=== PATIENT | male | born 1965 | race Caucasian/White ===

== ENCOUNTER 2020-03-24 16:29 | Emergency (ER) | payer MEDICAID ==
[~2020-03-24] VITALS: Ht 175.3 cm; Wt 90.0 kg
[2020-03-24 18:05] LABS: CLARITY,URINE CLEAR (Clear); COLOR,URINE STRAW (Yellow); GLUCOSE, URINE NEGATIVE (Neg); KETONES,URINE NEGATIVE (Neg); LEUKOCYTE ESTERASE ,URINE NEGATIVE (Neg); NITRITES, URINE NEGATIVE (Neg); OCCULT BLOOD,URINE NEGATIVE (Neg); PROTEIN,URINE NEGATIVE (Neg); UROBILINOGEN,URINE 0.2 E.U/dL (0.2-1.0)
[2020-03-24 18:12] LABS: URINE AMPHETAMINE SCREEN NEGATIVE (Neg); URINE BARBITUATE SCREEN NEGATIVE (Neg); URINE BENZODIAZEPINES SCREEN POSITIVE (Neg); URINE CANNABINOID SCREEN POSITIVE (Neg); URINE COCAINE SCREEN NEGATIVE (Neg); URINE METHADONE SCREEN NEGATIVE (Neg); URINE OPIATE SCREEN NEGATIVE (Neg); URINE PHENCYCLIDINE SCREEN NEGATIVE (Neg)
[2020-03-24 18:30] LABS: UA COLLECTION TYPE VOIDED
[2020-03-24 18:40] LABS: BASOPHILS # (AUTO) 0.1 X10'3 (0-0.2); BASOPHILS % (AUTO) 1.1 % (0-1); EOSINOPHILS % (AUTO) 0.4 % (0-6); HEMATOCRIT 37.8 % (42.0-52.0); HEMOGLOBIN 12.5 g/dl (14.0-17.9); LYMPHOCYTES # (AUTO) 3.2 X10'3 (1.1-4.8); MEAN CORPUSCULAR HEMOGLOBIN 30.6 PG (27.0-31.0); MEAN CORPUSCULAR HGB CONC 33.1 g/dL (33.0-36.5); MEAN CORPUSCULAR VOLUME 92.6 FL (78-98); MEAN PLATELET VOLUME 7.7 FL (7.4-10.4); MONOCYTES # (AUTO) 0.5 X10'3 (0-0.9); MONOCYTES % (AUTO) 6.9 % (2-12); NEUTROPHILS # (AUTO) 3.8 X10'3 (1.8-7.7); NEUTROPHILS % (AUTO) 49.6 % (42-75); PLATELET COUNT 279 X10'3 (140-440); RED BLOOD COUNT 4.08 X10'6 (4.70-6.10); RED CELL DISTRIBUTION WIDTH 15.3 % (11.5-14.5); WHITE BLOOD COUNT 7.6 X10'3 (4.5-11.0)
[2020-03-24 18:51] LABS: ALANINE AMINOTRANSFERASE 43 U/L (12-78); ALBUMIN 2.7 G/DL (3.4-5.0); ALBUMIN/GLOBULIN RATIO 0.5 (1.1-1.5); ALKALINE PHOSPHATASE 119 IU/L (46-116); ANION GAP 13 (8-16); ASPARTATE AMINO TRANSFERASE 39 U/L (10-37); BILIRUBIN,TOTAL 0.2 MG/DL (0.1-1.0); BLOOD UREA NITROGEN 12 MG/DL (7-18); BUN/CREATININE RATIO 12.8 (5.4-32.0); CALCIUM 8.1 MG/DL (8.5-10.1); CHLORIDE 106 MMOL/L (99-107); CREATININE 0.94 MG/DL (0.60-1.10); GLUCOSE 96 MG/DL (70-104); POTASSIUM 3.1 MMOL/L (3.5-5.1); SODIUM 142 MMOL/L (135-145); TOTAL CARBON DIOXIDE 22.7 MMOL/L (24-32); TOTAL PROTEIN 8.4 G/DL (6.4-8.2); eGFR 83 ML/MIN
[2020-03-24 18:53] LABS: TROPONIN I < 0.04 NG/ML (0.0-0.05)
[2020-03-24] MEDS ORDERED: potassium Cl 20 mEq SR tablet PO ONE (20:00)
[2020-03-24 20:11] VITALS: BP 131/85
== END 2020-03-24 20:14 | disposition home or self-care (01) ==
LOC: ER 16:30
DX: F19.10 Other psychoactive substance abuse, uncomplicated (principal); F10.129 Alcohol abuse with intoxication, unspecified; F12.90 Cannabis use, unspecified, uncomplicated; Z72.89 Other problems related to lifestyle; Y90.0 Blood alcohol level of less than 20 mg/100 ml
CPT/HCPCS: 36415; 80053; 80305; 80320; 81003; 82140; 84484; 85025; 99283

== ENCOUNTER 2020-03-27 10:51 | Emergency (ER) | payer BC, MEDICAID ==
[~2020-03-27] VITALS: Ht 182.9 cm; Wt 88.6 kg
[2020-03-27 11:05] VITALS: BP 153/103
== END 2020-03-27 12:27 | disposition home or self-care (01) ==
LOC: ER 10:52
DX: S31.31XD Laceration without foreign body of scrotum and testes, subsequent encounter (principal); X58.XXXD Exposure to other specified factors, subsequent encounter; Z48.00 Encounter for change or removal of nonsurgical wound dressing
CPT/HCPCS: 99281

== ENCOUNTER 2020-04-25 11:24 | Emergency (ER) | payer MEDICAID ==
[~2020-04-25] VITALS: Ht 182.9 cm; Wt 86.4 kg
[~2020-04-25 11:24] MED LIST: ESCI20TA39 PO; FAMO20TA8 PO; HYDR-3686 PO; HYDROchlorothiazide tablet PO; IBUP-1984 PO; MULT-25 PO; NICO-631 TD; NYSPWD TP; PRAZ5CAP2 PO; TRAZ-251 PO; folic acid tablet PO
[2020-04-25 12:03] LABS: BASOPHILS # (AUTO) 0.1 X10'3 (0-0.2); BASOPHILS % (AUTO) 0.8 % (0-1); EOSINOPHILS % (AUTO) 0.5 % (0-6); HEMOGLOBIN 13.9 g/dl (14.0-17.9); LYMPHOCYTES # (AUTO) 2.5 X10'3 (1.1-4.8); MEAN CORPUSCULAR HEMOGLOBIN 30.7 PG (27.0-31.0); MEAN CORPUSCULAR VOLUME 92.9 FL (78-98); MEAN PLATELET VOLUME 7.8 FL (7.4-10.4); MONOCYTES # (AUTO) 0.5 X10'3 (0-0.9); NEUTROPHILS # (AUTO) 4.6 X10'3 (1.8-7.7); NEUTROPHILS % (AUTO) 59.7 % (42-75); PLATELET COUNT 226 X10'3 (140-440); RED BLOOD COUNT 4.52 X10'6 (4.70-6.10); WHITE BLOOD COUNT 7.8 X10'3 (4.5-11.0)
--- NOTE | 2020-04-25 12:11 | NUR ---
urine sent and labs drawn. Pt sitting at edge of bed. Awaiting [facility] PAVAN Rodriguez aware and will see pt when medically cleared.
[2020-04-25 12:18] LABS: ALANINE AMINOTRANSFERASE 58 U/L (12-78); ALBUMIN 3.5 G/DL (3.4-5.0); ALBUMIN/GLOBULIN RATIO 0.6 (1.1-1.5); ALKALINE PHOSPHATASE 103 IU/L (46-116); ANION GAP 9 (8-16); ASPARTATE AMINO TRANSFERASE 37 U/L (10-37); BILIRUBIN,TOTAL 0.2 MG/DL (0.1-1.0); BLOOD UREA NITROGEN 23 MG/DL (7-18); BUN/CREATININE RATIO 25.8 (5.4-32.0); CALCIUM 9.4 MG/DL (8.5-10.1); CHLORIDE 103 MMOL/L (99-107); CREATININE 0.89 MG/DL (0.60-1.10); ETHANOL 0.051 GM/DL (0.0-0.010); GLUCOSE 104 MG/DL (70-104); POTASSIUM 3.9 MMOL/L (3.5-5.1); SODIUM 140 MMOL/L (135-145); TOTAL CARBON DIOXIDE 28.3 MMOL/L (24-32); TOTAL PROTEIN 9.2 G/DL (6.4-8.2); eGFR 88 ML/MIN
[2020-04-25 12:25] LABS: CLARITY,URINE CLEAR (Clear); COLOR,URINE STRAW (Yellow); GLUCOSE, URINE NEGATIVE (Neg); KETONES,URINE NEGATIVE (Neg); LEUKOCYTE ESTERASE ,URINE NEGATIVE (Neg); NITRITES, URINE NEGATIVE (Neg); OCCULT BLOOD,URINE LARGE (Neg); PH,URINE 5.5 (4.8-8.0); PROTEIN,URINE NEGATIVE (Neg); UROBILINOGEN,URINE 0.2 E.U/dL (0.2-1.0)
[2020-04-25 12:26] LABS: UA COLLECTION TYPE CLN CATCH MIDSTREAM
[2020-04-25 12:46] LABS: URINE AMPHETAMINE SCREEN NEGATIVE (Neg); URINE BARBITUATE SCREEN NEGATIVE (Neg); URINE BENZODIAZEPINES SCREEN NEGATIVE (Neg); URINE CANNABINOID SCREEN POSITIVE (Neg); URINE COCAINE SCREEN NEGATIVE (Neg); URINE METHADONE SCREEN NEGATIVE (Neg); URINE OPIATE SCREEN NEGATIVE (Neg); URINE PHENCYCLIDINE SCREEN NEGATIVE (Neg)
[2020-04-25 12:48] LABS: RBC,URINE 0-2 /HPF (0-2)
[2020-04-25 12:51] LABS: BACTERIA,URINE NONE SEEN /HPF (Neg)
[2020-04-25 12:52] LABS: SQUAMOUS EPITHELIAL CELL,UR FEW /LPF (FEW)
[2020-04-25 12:55] LABS: WBC,URINE 0-4 /HPF (0-4)
--- NOTE | 2020-04-25 14:34 | NUR ---
FAXED PACKET [facility]
--- NOTE | 2020-04-25 15:56 | NUR ---
Patient ambulatory to BR, Steady gait. Patient requesting a snack. Patient is polite. Continue to monitor.
[2020-04-25] MEDS ORDERED: HYDR12.55 PO (17:00)
[2020-04-25] MEDS ORDERED: HYDR-3686 PO (17:00)
[2020-04-25] MEDS ORDERED: Folic Acid (17:00)
[2020-04-25] MEDS ORDERED: ESCI20TA39 PO (17:00)
[2020-04-25] MEDS ORDERED: FOLIC ACID 1 MG PO (17:00)
[2020-04-25] MEDS ORDERED: FAMO20TA8 PO (17:00)
[2020-04-25] MEDS ORDERED: TRAZ-256 PO (17:00)
[2020-04-25] MEDS ORDERED: IBUP-1984 PO (17:00)
[2020-04-25] MEDS ORDERED: PRAZ5CAP2 PO (17:00)
[2020-04-25] MEDS ORDERED: NICO-631 TD (17:00)
[2020-04-25] MEDS ORDERED: MULT-1085 PO (17:00)
[2020-04-25] MEDS ORDERED: ibuprofen tablet 400 MG TABLET PO PRN (17:50)
[2020-04-25] MEDS: hydrOXYzine 25 MG tablet PO PRN (17:58)
[2020-04-25] MEDS: ESCITALOPRAM OXALATE 5 MG TABLET PO SCH (18:24)
--- NOTE | 2020-04-25 18:33 | NUR ---
The patient has been resting on her bed. He has an intact dressing to his right lower leg. He stated he did not get his medications filled after discharge because "the pharmacy didn't have time because I had so many" He stated his mood was "pretty dark. I'm pretty susicidal. Anxious" The patient in no signs of distress at this time. He was made aware of plan of care.
[2020-04-25] MEDS: famotidine 20mg tablet PO SCH (20:38)
[2020-04-25] MEDS: traZODone 50mg tablet PO SCH (20:38)
--- NOTE | 2020-04-25 20:58 | NUR ---
The patient appears to be sleeping.
[2020-04-25] MEDS ORDERED: prazosin 5mg capsule PO SCH (21:00)
--- NOTE | 2020-04-25 22:19 | NUR ---
The patient appears to be sleeping
--- NOTE | 2020-04-25 23:17 | NUR ---
The patient appears to be sleeping
--- NOTE | 2020-04-26 02:55 | NUR ---
The patient has been up to use the bathroom once but on other checks he appears to be sleeping well.
--- NOTE | 2020-04-26 03:50 | NUR ---
The patient appears to be sleeping
[2020-04-26] MEDS: hydrOXYzine 25 MG tablet PO PRN ×2 (05:50→12:01)
--- NOTE | 2020-04-26 06:35 | NUR ---
Patient is anxious and just got his Atarax. Patient is pacing quietly in front of nurses station. Continue to monitor.
--- NOTE | 2020-04-26 07:50 | NUR ---
Patient eating breakfast. No distress observed. Continue to monitor.
[2020-04-26] MEDS ORDERED: HYDROchlorothiazide 12.5mg capsule PO SCH (08:00)
[2020-04-26] MEDS ORDERED: multivitamins, therapeutics tablet PO SCH (08:00)
[2020-04-26] MEDS ORDERED: nicotine 14mg patch - 24hr TD SCH (08:00)
[2020-04-26] MEDS ORDERED: folic acid 1mg tablet PO SCH (08:00)
[2020-04-26] MEDS: famotidine 20mg tablet PO SCH ×2 (08:17→20:40)
[2020-04-26] MEDS: ESCITALOPRAM OXALATE 5 MG TABLET PO SCH (08:18)
--- NOTE | 2020-04-26 09:03 | NUR ---
Patient laying in bed awake. No distress observed at this time. Continue to monitor.
--- NOTE | 2020-04-26 10:42 | NUR ---
Breaking Primary RN. Pt questioning when he will speak with a "doctor". It was explained to him that he was medically cleared and on a 72 hour hold. Pt asked when [facility] would be speaking with him, and it was then explained to him that they will re-evaluate him priro to releasing him. Pt then stated that he "need(s) to talk to someone", and states "my head space ain't right". Pt then goes on to say that he "need(s) to be placed in another facility".
--- NOTE | 2020-04-26 12:04 | NUR ---
Patient given Anxiety medication. Patient states this medication is not helping and wants something else. RN to ask Dr Chamberlain. Continue to monitor.
[2020-04-26] MEDS ORDERED: LORazepam 1 MG tablet PO ONE (13:30)
--- NOTE | 2020-04-26 14:19 | NUR ---
Patient given 1 mg Ativan PO and feeling a little better. Continue to monitor.
--- NOTE | 2020-04-26 16:10 | NUR ---
RN performed a Covid test due to [facility] office calling and requesting one for a possible admit. Continue to monitor.
[2020-04-26 18:08] VITALS: BP 144/98
--- NOTE | 2020-04-26 19:23 | NUR ---
PT REQUESTING AMBIEN TO HELP HIM SLEEP TONIGHT HE STATES THE TRAZODONE DOES NOT WORK FOR HIM ANYMORE. SPOKE WITH ESTEFANY BAUGH WHO ORDERED BENADRYL 50MG PO AT 1999 AMBIEN IS NOT GOOD CHOICE FOR THIS PT. PT OKAY WITH THIS CHANGE AND IS WILLING TO TRY BENADRYL. ORDER PLACED RECEIVED
[2020-04-26] MEDS ORDERED: diphenhydrAMINE 25mg capsule PO ONE (20:00)
--- NOTE | 2020-04-26 20:31 | NUR ---
[facility] to [facility] in [place]. states they will call when they find a electric mule driver to come picker/puller pt.
[2020-04-26] MEDS ORDERED: prazosin 1mg capsule PO SCH (20:48)
[2020-04-26] MEDS: traZODone 50mg tablet PO SCH (20:54)
== END 2020-04-26 21:38 ==
LOC: ER 11:25
DX: R45.851 Suicidal ideations (principal); Z20.822 Contact with and (suspected) exposure to COVID-19; F19.10 Other psychoactive substance abuse, uncomplicated; F32.9 Major depressive disorder, single episode, unspecified; F43.10 Post-traumatic stress disorder, unspecified; F17.200 Nicotine dependence, unspecified, uncomplicated; F12.90 Cannabis use, unspecified, uncomplicated; F15.90 Other stimulant use, unspecified, uncomplicated; F11.90 Opioid use, unspecified, uncomplicated; I10 Essential (primary) hypertension; Z72.89 Other problems related to lifestyle; Z59.0 Homelessness; Z96.643 Presence of artificial hip joint, bilateral; Z79.899 Other long term (current) drug therapy; Z76.5 Malingerer [conscious simulation]
CPT/HCPCS: 36415; 80053; 80305; 80320; 81001; 85025; 87635; 99285; C9803; Q0163; Q0177

== ENCOUNTER 2020-05-04 13:14 | Emergency (ER) | payer MEDICAID, MEDICARE ==
[~2020-05-04] VITALS: Ht 185.4 cm; Wt 225.0 kg
[~2020-05-04 13:14] MED LIST changes: +FOLIC ACID 1 MG PO; +HYDR12.55 PO; -HYDROchlorothiazide tablet PO; +MULT-1085 PO; -MULT-25 PO; -NYSPWD TP; -TRAZ-251 PO; +TRAZ-256 PO; -folic acid tablet PO
[2020-05-04 15:25] LABS: BASOPHILS # (AUTO) 0.1 X10'3 (0-0.2); EOSINOPHILS # (AUTO) 0.2 X10'3 (0-0.9); EOSINOPHILS % (AUTO) 3.3 % (0-6); HEMATOCRIT 35.7 % (42.0-52.0); HEMOGLOBIN 11.9 g/dl (14.0-17.9); LYMPHOCYTES # (AUTO) 2.1 X10'3 (1.1-4.8); LYMPHOCYTES % (AUTO) 32.5 % (21-51); MEAN CORPUSCULAR HEMOGLOBIN 30.6 PG (27.0-31.0); MEAN CORPUSCULAR HGB CONC 33.3 g/dL (33.0-36.5); MEAN CORPUSCULAR VOLUME 91.9 FL (78-98); MEAN PLATELET VOLUME 7.9 FL (7.4-10.4); MONOCYTES # (AUTO) 0.7 X10'3 (0-0.9); MONOCYTES % (AUTO) 10.9 % (2-12); NEUTROPHILS # (AUTO) 3.3 X10'3 (1.8-7.7); NEUTROPHILS % (AUTO) 52.3 % (42-75); PLATELET COUNT 184 X10'3 (140-440); RED BLOOD COUNT 3.89 X10'6 (4.70-6.10); RED CELL DISTRIBUTION WIDTH 16.3 % (11.5-14.5); WHITE BLOOD COUNT 6.3 X10'3 (4.5-11.0)
[2020-05-04 15:41] LABS: ALANINE AMINOTRANSFERASE 48 U/L (12-78); ALBUMIN 3.2 G/DL (3.4-5.0); ALBUMIN/GLOBULIN RATIO 0.7 (1.1-1.5); ALKALINE PHOSPHATASE 96 IU/L (46-116); ANION GAP 10 (8-16); ASPARTATE AMINO TRANSFERASE 34 U/L (10-37); BILIRUBIN,TOTAL 0.4 MG/DL (0.1-1.0); BLOOD UREA NITROGEN 21 MG/DL (7-18); BUN/CREATININE RATIO 21.4 (5.4-32.0); CALCIUM 9.3 MG/DL (8.5-10.1); CHLORIDE 102 MMOL/L (99-107); CREATININE 0.98 MG/DL (0.60-1.10); GLUCOSE 108 MG/DL (70-104); SODIUM 139 MMOL/L (135-145); TOTAL CARBON DIOXIDE 27.3 MMOL/L (24-32); TOTAL PROTEIN 7.9 G/DL (6.4-8.2); eGFR 79 ML/MIN
[2020-05-04 15:49] LABS: ACETAMINOPHEN < 2.0 UG/ML (10-30); ETHANOL < 0.010 GM/DL (0.0-0.010)
--- NOTE | 2020-05-04 17:49 | NUR ---
Pt brought over and placed into bed 24. Pt changed into green scrubs and belongings recorded and placed into a belongings bag.
[2020-05-04 18:25] LABS: CLARITY,URINE SLIGHTLY CLOUDY (Clear); COLOR,URINE STRAW (Yellow); GLUCOSE, URINE NEGATIVE (Neg); KETONES,URINE NEGATIVE (Neg); LEUKOCYTE ESTERASE ,URINE NEGATIVE (Neg); NITRITES, URINE NEGATIVE (Neg); OCCULT BLOOD,URINE MODERATE (Neg); PROTEIN,URINE NEGATIVE (Neg); UROBILINOGEN,URINE 0.2 E.U/dL (0.2-1.0)
[2020-05-04 18:31] LABS: URINE AMPHETAMINE SCREEN POSITIVE (Neg); URINE BARBITUATE SCREEN NEGATIVE (Neg); URINE BENZODIAZEPINES SCREEN NEGATIVE (Neg); URINE CANNABINOID SCREEN POSITIVE (Neg); URINE COCAINE SCREEN NEGATIVE (Neg); URINE METHADONE SCREEN NEGATIVE (Neg); URINE OPIATE SCREEN NEGATIVE (Neg); URINE PHENCYCLIDINE SCREEN NEGATIVE (Neg)
[2020-05-04 18:48] LABS: UA COLLECTION TYPE VOIDED
[2020-05-04 18:50] LABS: SQUAMOUS EPITHELIAL CELL,UR FEW /LPF (FEW); TRANSITIONAL EPI CELLS,URINE FEW /HPF
[2020-05-04 18:51] LABS: BACTERIA,URINE NONE SEEN /HPF (Neg); RBC,URINE 0-2 /HPF (0-2); WBC,URINE 0-4 /HPF (0-4)
--- NOTE | 2020-05-04 19:00 | NUR ---
One to one with the patient who presents as sightly confused and slurring his words. He admits to ETOH yesterday and methamphetamine recently. His drug screen was positive for amphetamines and THC. He reports that he is hearing voices telling him to harm himself. He was cooperative with unit routine and assessment. He was cooperative with giving a urine sample. He ate 100% of his dinner. He stated that he has been living at the [facility]. 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 The dressing he had on it he stated was changed 3 days ago and it had green purulent drainage. Dr. Chamberlain made aware of leg and did examine the leg and orders received.
[2020-05-04] MEDS ORDERED: bacitracin 15gm ointment TP ONE (19:40)
--- NOTE | 2020-05-04 19:57 | NUR ---
Packet sent to [facility]
--- NOTE | 2020-05-04 20:26 | NUR ---
The patient appears to be sleeping.
[2020-05-04] MEDS ORDERED: QUET400T PO ×2 (20:32→20:53)
[2020-05-04] MEDS ORDERED: TRAZ150T78 PO (20:53)
[2020-05-04] MEDS ORDERED: GABA800T PO (20:53)
[2020-05-04] MEDS ORDERED: mag hydrox/Alum hydrox/simeth 30ml oral suspension PO PRN (21:20)
[2020-05-04] MEDS ORDERED: QUET50TA22 PO (21:28)
[2020-05-04] MEDS ORDERED: QUETIAPINE FUMARATE 50 MG PO PRN (21:30)
--- NOTE | 2020-05-04 21:51 | NUR ---
The patient appears to be sleeping
[2020-05-04] MEDS: acetaminophen 325mg tablet PO PRN (23:24)
--- NOTE | 2020-05-05 00:08 | NUR ---
The patient was awake briefly and given tylenol for pain. He appears to be sleeping at this time.
--- NOTE | 2020-05-05 01:31 | NUR ---
The patient appears to be sleeping
--- NOTE | 2020-05-05 03:59 | NUR ---
The patient appears to be sleeping
--- NOTE | 2020-05-05 05:25 | NUR ---
The patient appears to be sleeping
[2020-05-05] MEDS: acetaminophen 325mg tablet PO PRN (05:51)
--- NOTE | 2020-05-05 06:50 | NUR ---
PT PROVIED EARPLUGS PER REQUEST. PT RESTING ON BACK WITH EYES CLOSED RR EQUAL AND UNLABORED
[2020-05-05] MEDS: ESCITALOPRAM OXALATE 5 MG TABLET PO SCH (07:54)
[2020-05-05] MEDS: quetiapine 100mg tablet PO SCH ×2 (07:55→20:13)
[2020-05-05] MEDS: gabapentin 400mg capsule PO SCH ×3 (07:55→20:13)
--- NOTE | 2020-05-05 08:06 | NUR ---
PT SITTING ON SIDE OF BED EATING BREAKFAST. AM MEDS GIVEN
--- NOTE | 2020-05-05 08:49 | NUR ---
PT RESTING WITH EYES CLOSED RR EQUAL AND UNLABORED
--- NOTE | 2020-05-05 10:34 | NUR ---
PT RESTING WITH EYES CLOSED RR EQUAL AND UNLABORED
--- NOTE | 2020-05-05 12:56 | NUR ---
PT RESTING WITH EYES CLOSED RR EQUAL AND UNLABORED
[2020-05-05] MEDS: QUEtiapine 25mg tablet PO PRN (14:16)
[2020-05-05] MEDS: sulfamethoxazole/trimethoprim DS (800/160mg) tablet PO SCH ×2 (14:17→20:12)
[2020-05-05] MEDS ORDERED: QUET400T12 PO (14:54)
--- NOTE | 2020-05-05 16:38 | NUR ---
CALL FROM [facility]. PT IS FROM [facility] AND THEY ARE LOOKING FOR PLACEMENT FOR PT.
--- NOTE | 2020-05-05 17:17 | NUR ---
LABS FAXED TO [facility] [phone]
--- NOTE | 2020-05-05 19:43 | NUR ---
pt is resting, no s/s of distress noted.
[2020-05-05] MEDS: traZODone 150mg tablet PO SCH (20:13)
[2020-05-05] MEDS: prazosin 5mg capsule PO SCH (20:19)
--- NOTE | 2020-05-05 21:03 | NUR ---
pt is sleeping, no s/s of distress noted.
[2020-05-06] MEDS ORDERED: acetaminophen 325mg tablet PO ONE (00:05)
[2020-05-06] MEDS: acetaminophen 325mg tablet PO PRN ×2 (00:07→09:09)
--- NOTE | 2020-05-06 00:10 | NUR ---
pt awoke to ask for tylenol for arm pain. pt give 650 mg tylenol and went back to bed.
--- NOTE | 2020-05-06 01:46 | NUR ---
pt continues to sleep, no s/s of distress noted.
[2020-05-06] MEDS: QUEtiapine 25mg tablet PO PRN ×3 (02:22→17:30)
--- NOTE | 2020-05-06 04:21 | NUR ---
pt continues to sleep, rr unlabored, no s/s of distress noted.
[2020-05-06] MEDS ORDERED: nicotine 21mg patch - 24 hr TD ONE (06:15)
--- NOTE | 2020-05-06 06:44 | NUR ---
Patient is lying supine in bed sleeping. Respirations are even and nonlabored.
[2020-05-06] MEDS: gabapentin 400mg capsule PO SCH ×3 (09:09→19:54)
[2020-05-06] MEDS: quetiapine 100mg tablet PO SCH ×2 (09:09→19:54)
[2020-05-06] MEDS: sulfamethoxazole/trimethoprim DS (800/160mg) tablet PO SCH ×2 (09:09→19:54)
[2020-05-06] MEDS: ESCITALOPRAM OXALATE 5 MG TABLET PO SCH (09:10)
--- NOTE | 2020-05-06 09:48 | NUR ---
Patient ate breakfast, then up to the restroom. Requesting a.m. meds for anxiety. Patient is now sleeping quietly. Patient reported that he just had too many stressors and was hopeless and suicidal. Patient is now sleeping.
--- NOTE | 2020-05-06 14:02 | NUR ---
Patient reported that he is feeling anxious, was medicated with Neurontin. Patient believed that his Seroquel was to be given q.i.d., instead it is ordered b.i.d. Patient just finished lunch and is sitting up at bedside.
--- NOTE | 2020-05-06 15:40 | NUR ---
Patient sleeping supine in bed. Respirations are even and nonlabored.
--- NOTE | 2020-05-06 18:30 | NUR ---
The patient is eating his dinner at the side of his bed
--- NOTE | 2020-05-06 19:18 | NUR ---
The patient is resting on his bed after eating 100% of his evening meal. He is stating that he is feeling as suicidal as when he was admitted. He stated that he believes [facility] is seeking placment for him. His affect is blunted. He stated that his energy level is low and that he is hearing voices telling him to kill himself.
[2020-05-06] MEDS: prazosin 5mg capsule PO SCH (19:54)
[2020-05-06] MEDS: lactobacillus rhamnosus 10,000 MMU CELLS/CAPSULE PO SCH (19:54)
[2020-05-06] MEDS: traZODone 150mg tablet PO SCH (19:55)
--- NOTE | 2020-05-06 20:17 | NUR ---
THe patient is up to use the bathroom. He is quiet, cooperative and in no apparent distress. He was given an HS snack
--- NOTE | 2020-05-06 21:54 | NUR ---
The patient appears to be sleeping.
--- NOTE | 2020-05-06 23:52 | NUR ---
The patient appears to be sleeping
--- NOTE | 2020-05-07 01:20 | NUR ---
The patient appears to be sleeping
--- NOTE | 2020-05-07 02:48 | NUR ---
The patient appears to be sleeping
--- NOTE | 2020-05-07 02:57 | NUR ---
Nurse to nurse with [facility] and spoke with Joan
--- NOTE | 2020-05-07 03:08 | NUR ---
Per [facility] patient has been accepted by Dr. Thompson , will call back with transpotion Info from [facility].
--- NOTE | 2020-05-07 04:01 | NUR ---
The patient appears to be sleeping
[2020-05-07] MEDS: QUEtiapine 25mg tablet PO PRN (05:06)
[2020-05-07 05:10] VITALS: BP 113/80
--- NOTE | 2020-05-07 05:10 | NUR ---
The patient awakened for vital signs and requested PRN med for anxiety and Seroquel given.
--- NOTE | 2020-05-07 06:41 | NUR ---
Received Pt in bed sleeping w/o distress at change of shift.
[2020-05-07] MEDS: lactobacillus rhamnosus 10,000 MMU CELLS/CAPSULE PO SCH (08:01)
[2020-05-07] MEDS: sulfamethoxazole/trimethoprim DS (800/160mg) tablet PO SCH (08:01)
[2020-05-07] MEDS: quetiapine 100mg tablet PO SCH (08:02)
[2020-05-07] MEDS: ESCITALOPRAM OXALATE 5 MG TABLET PO SCH (08:02)
[2020-05-07] MEDS: gabapentin 400mg capsule PO SCH (08:02)
--- NOTE | 2020-05-07 08:50 | NUR ---
[facility] DIRECTOR OF SOCIAL MEDIA MARKETING STYLIST APPRENTICE ETA [id number].
--- NOTE | 2020-05-07 09:47 | NUR ---
Pt woke and ate breakfast and was cooperative with taking AM meds. Pt calm and pleasant to talk with. He appears depressed with flat affect. Pt was picked up by [facility] courtesy driver and transfered to [facility]. [facility].
[2020-05-08] MEDS ORDERED: FOLI0.4T14 PO (13:18)
[2020-05-08] MEDS ORDERED: FOLI0.4T6 PO ×2 (13:18→13:34)
[2020-05-08] MEDS ORDERED: SULF1TAB45 PO (13:18)
[2020-05-08] MEDS ORDERED: HYDR12.55 PO (13:18)
== END 2020-05-07 09:52 ==
LOC: ER 13:14
DX: F79 Unspecified intellectual disabilities (principal); Z20.822 Contact with and (suspected) exposure to COVID-19; I10 Essential (primary) hypertension; F12.90 Cannabis use, unspecified, uncomplicated; F15.90 Other stimulant use, unspecified, uncomplicated; F11.90 Opioid use, unspecified, uncomplicated; Z98.890 Other specified postprocedural states; Z72.89 Other problems related to lifestyle; Z59.0 Homelessness; Z79.899 Other long term (current) drug therapy
CPT/HCPCS: 36415; 80053; 80305; 80320; 80329; 81001; 82140; 84443; 85025; 87426; 93005; 99285

== ENCOUNTER 2020-05-08 11:29 | Emergency (ER) | payer MEDICAID ==
[~2020-05-08] VITALS: Ht 182.9 cm; Wt 88.6 kg
[~2020-05-08 11:29] MED LIST changes: -FAMO20TA8 PO; -FOLIC ACID 1 MG PO; +GABA800T PO; -HYDR-3686 PO; -HYDR12.55 PO; -IBUP-1984 PO; -MULT-1085 PO; -NICO-631 TD; +QUET400T PO; +QUET400T12 PO; -TRAZ-256 PO; +TRAZ150T78 PO
[2020-05-08 12:02] LABS: BASOPHILS % (AUTO) 0.7 % (0-1); EOSINOPHILS % (AUTO) 0.2 % (0-6); HEMATOCRIT 41.1 % (42.0-52.0); HEMOGLOBIN 13.6 g/dl (14.0-17.9); LYMPHOCYTES # (AUTO) 1.2 X10'3 (1.1-4.8); LYMPHOCYTES % (AUTO) 19.8 % (21-51); MEAN CORPUSCULAR HEMOGLOBIN 30.8 PG (27.0-31.0); MEAN CORPUSCULAR HGB CONC 33.2 g/dL (33.0-36.5); MEAN CORPUSCULAR VOLUME 92.9 FL (78-98); MEAN PLATELET VOLUME 7.2 FL (7.4-10.4); MONOCYTES # (AUTO) 0.3 X10'3 (0-0.9); MONOCYTES % (AUTO) 5.1 % (2-12); NEUTROPHILS # (AUTO) 4.3 X10'3 (1.8-7.7); NEUTROPHILS % (AUTO) 74.2 % (42-75); PLATELET COUNT 212 X10'3 (140-440); RED BLOOD COUNT 4.42 X10'6 (4.70-6.10); RED CELL DISTRIBUTION WIDTH 15.9 % (11.5-14.5); WHITE BLOOD COUNT 5.8 X10'3 (4.5-11.0)
[2020-05-08 12:05] LABS: CLARITY,URINE CLEAR (Clear); COLOR,URINE STRAW (Yellow); GLUCOSE, URINE NEGATIVE (Neg); KETONES,URINE NEGATIVE (Neg); LEUKOCYTE ESTERASE ,URINE NEGATIVE (Neg); NITRITES, URINE NEGATIVE (Neg); OCCULT BLOOD,URINE MODERATE (Neg); PROTEIN,URINE NEGATIVE (Neg); UROBILINOGEN,URINE 0.2 E.U/dL (0.2-1.0)
[2020-05-08 12:07] LABS: UA COLLECTION TYPE CLN CATCH MIDSTREAM
[2020-05-08 12:11] LABS: BACTERIA,URINE FEW /HPF (Neg); SQUAMOUS EPITHELIAL CELL,UR FEW /LPF (FEW); WBC,URINE 0-4 /HPF (0-4)
[2020-05-08 12:25] LABS: ALANINE AMINOTRANSFERASE 54 U/L (12-78); ALBUMIN 3.6 G/DL (3.4-5.0); ALBUMIN/GLOBULIN RATIO 0.7 (1.1-1.5); ALKALINE PHOSPHATASE 100 IU/L (46-116); ANION GAP 9 (8-16); ASPARTATE AMINO TRANSFERASE 35 U/L (10-37); BILIRUBIN,TOTAL 0.1 MG/DL (0.1-1.0); BLOOD UREA NITROGEN 15 MG/DL (7-18); BUN/CREATININE RATIO 13.5 (5.4-32.0); CALCIUM 9.3 MG/DL (8.5-10.1); CHLORIDE 106 MMOL/L (99-107); CREATININE 1.11 MG/DL (0.60-1.10); ETHANOL 0.011 GM/DL (0.0-0.010); GLUCOSE 99 MG/DL (70-104); POTASSIUM 4.7 MMOL/L (3.5-5.1); SODIUM 140 MMOL/L (135-145); TOTAL CARBON DIOXIDE 25.3 MMOL/L (24-32); TOTAL PROTEIN 8.7 G/DL (6.4-8.2); eGFR 69 ML/MIN
[2020-05-08 12:42] LABS: URINE AMPHETAMINE SCREEN NEGATIVE (Neg); URINE BARBITUATE SCREEN NEGATIVE (Neg); URINE BENZODIAZEPINES SCREEN NEGATIVE (Neg); URINE CANNABINOID SCREEN POSITIVE (Neg); URINE COCAINE SCREEN NEGATIVE (Neg); URINE METHADONE SCREEN NEGATIVE (Neg); URINE OPIATE SCREEN NEGATIVE (Neg); URINE PHENCYCLIDINE SCREEN NEGATIVE (Neg)
[2020-05-08] MEDS ORDERED: HYDR12.55 PO (13:18)
[2020-05-08] MEDS ORDERED: FOLI0.4T14 PO (13:18)
[2020-05-08] MEDS ORDERED: SULF1TAB45 PO (13:18)
[2020-05-08] MEDS ORDERED: FOLI0.4T6 PO ×2 (13:18→13:34)
[2020-05-08] MEDS ORDERED: hydrOXYzine 25 MG tablet PO PRN (13:30)
[2020-05-08] MEDS: hydrOXYzine 25 MG tablet PO PRN ×2 (13:46→20:04)
--- NOTE | 2020-05-08 13:50 | NUR ---
Patient c/o anxiety. RN did Med Rec and did not see anything for anxiety. RN received verbal order for Hydroxyzine. RN gave patient med and patient states "This medication is not going to cut it." Patient states he takes Seroquel for anxiety. RN looked at external Med Rec and nothing is showing for Seroquel. RN called [facility] but they are not answering the phone at this moment. RN will continue to call to see if indeed Seroquel is being prescribed for anxiety. Patient was discharged yesterday from [facility]. Continue to monitor.
[2020-05-08] MEDS: gabapentin 400mg capsule PO SCH ×2 (14:12→20:04)
--- NOTE | 2020-05-08 14:20 | NUR ---
Patient resting. No distress observed. Continue to monitor
--- NOTE | 2020-05-08 14:25 | NUR ---
SENT PACKET TO [facility]
--- NOTE | 2020-05-08 14:35 | NUR ---
RN spoke with [facility], [facility] and patient has a RX for Seroquel which has not been picked up yet. Seroquel 400 mg twice a day scheduled. RN advised patient that Seroquel is scheduled for tonight at 1999. Patient verbalized understanding. Patient did receive Gabapentin 800 mg. No distress observed. Continue to monitor.
--- NOTE | 2020-05-08 16:20 | NUR ---
Patient resting in bed. No distress observed. Patient states he is still suicidal without a plan. Continue to monitor.
--- NOTE | 2020-05-08 19:02 | NUR ---
The patient is resting on his bed. He continues to report suicidal thoughts but then stated, "I don't know if I could go through with it" He denies hearing voices.
[2020-05-08] MEDS: prazosin 5mg capsule PO SCH (20:04)
[2020-05-08] MEDS: quetiapine 100mg tablet PO SCH (20:04)
[2020-05-08] MEDS: sulfamethoxazole/trimethoprim DS (800/160mg) tablet PO SCH (20:04)
[2020-05-08] MEDS: traZODone 150mg tablet PO SCH (20:04)
--- NOTE | 2020-05-08 20:31 | NUR ---
The patient is sitting on his bed and having a snack. He is polite.
--- NOTE | 2020-05-08 21:10 | NUR ---
The patient appears to be sleeping
--- NOTE | 2020-05-08 22:09 | NUR ---
The patient appears to be sleeping
--- NOTE | 2020-05-08 23:07 | NUR ---
The patient appears to be sleeping
--- NOTE | 2020-05-09 01:17 | NUR ---
The patient appears to be sleeping
--- NOTE | 2020-05-09 03:10 | NUR ---
The patient appears to be sleeping but was up once to use the restroom and to check the time.
--- NOTE | 2020-05-09 05:46 | NUR ---
The patient appears to be sleeping and has been sleeping well for most of the night
--- NOTE | 2020-05-09 07:09 | NUR ---
Pt. sleeping supine, no distress noted. Will continue to monitor.
[2020-05-09] MEDS: gabapentin 400mg capsule PO SCH ×3 (07:59→20:03)
[2020-05-09] MEDS: quetiapine 100mg tablet PO SCH ×2 (08:00→20:03)
[2020-05-09] MEDS ORDERED: folic acid 1mg tablet PO SCH (08:00)
[2020-05-09] MEDS ORDERED: ESCITALOPRAM OXALATE 5 MG TABLET PO SCH (08:00)
[2020-05-09] MEDS ORDERED: HYDROchlorothiazide 12.5mg capsule PO SCH (08:00)
[2020-05-09] MEDS: sulfamethoxazole/trimethoprim DS (800/160mg) tablet PO SCH ×2 (08:00→20:03)
--- NOTE | 2020-05-09 09:10 | NUR ---
Pt. ate breakfast and took 0800 scheduled medications. Pt resting now. No distress noted. Will continue to monitor.
--- NOTE | 2020-05-09 10:02 | NUR ---
Pt. resting supine in bed. No distress noted. Will continue to monitor.
--- NOTE | 2020-05-09 12:00 | NUR ---
Pt. resting supine in his bed, no distress noted. Will continue to monitor.
[2020-05-09] MEDS: hydrOXYzine 25 MG tablet PO PRN (12:57)
--- NOTE | 2020-05-09 13:57 | NUR ---
Lunch ate at bedside. 1300 medications administered with no issues. PRN atarax administered per pt. request for anxiety at 1300. Pt. awake resting in bed at this time. Will continue to monitor.
--- NOTE | 2020-05-09 16:00 | NUR ---
Pt. calm and cooperative, requesting snack, snack provided. No distress noted. Will continue to montior.
[2020-05-09 18:01] VITALS: BP 124/75
--- NOTE | 2020-05-09 18:30 | NUR ---
Received report on patient that is finishing his dinner meal. He denies any needs at this time. States that he is feeling anxious, but is willing to wait for HS Seroquel for his anxiety.
[2020-05-09] MEDS: prazosin 5mg capsule PO SCH (20:03)
[2020-05-09] MEDS: traZODone 150mg tablet PO SCH (20:03)
[2020-05-10] MEDS ORDERED: ACET-3067 PO (15:49)
[2020-05-10] MEDS ORDERED: DOXY100C43 PO (15:49)
== END 2020-05-09 21:00 ==
LOC: ER 11:30
DX: F32.9 Major depressive disorder, single episode, unspecified (principal); Z20.822 Contact with and (suspected) exposure to COVID-19; R45.851 Suicidal ideations; F10.129 Alcohol abuse with intoxication, unspecified; I10 Essential (primary) hypertension; F12.90 Cannabis use, unspecified, uncomplicated; F15.90 Other stimulant use, unspecified, uncomplicated; F11.90 Opioid use, unspecified, uncomplicated; Z76.5 Malingerer [conscious simulation]; Z98.890 Other specified postprocedural states; Z72.89 Other problems related to lifestyle; Z59.0 Homelessness; Z79.2 Long term (current) use of antibiotics; Z79.899 Other long term (current) drug therapy
CPT/HCPCS: 36415; 80053; 80305; 80320; 81001; 85025; 87635; 99285; C9803; Q0177

== ENCOUNTER 2020-05-10 15:06 | Emergency (ER) | payer MEDICAID ==
[~2020-05-10 15:06] MED LIST changes: +FOLI0.4T6 PO; +HYDR12.55 PO; -QUET400T PO; -QUET400T12 PO; +SULF1TAB45 PO
[2020-05-10] MEDS ORDERED: ACET-3067 PO (15:49)
[2020-05-10] MEDS ORDERED: DOXY100C43 PO (15:49)
[2020-05-10] MEDS ORDERED: mupirocin 2% ointment 22GM TP STA (15:53)
--- NOTE | 2020-05-10 16:15 | NUR ---
SPOKE TO [facility] AND THEY SAID DUE TO THE PATIENT'S STATUS A MEDICAL PATIENT WE CAN NOT HOLD HIM UNLESS THE DOCTOR WRITES A 1799. PT D/C'D TO [facility].
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
[2020-05-10 16:56] VITALS: BP 149/96
== END 2020-05-10 16:59 | disposition home or self-care (01) ==
LOC: ER 15:07
DX: L03.115 Cellulitis of right lower limb (principal); I10 Essential (primary) hypertension; F17.200 Nicotine dependence, unspecified, uncomplicated; F12.90 Cannabis use, unspecified, uncomplicated; F15.90 Other stimulant use, unspecified, uncomplicated; F11.90 Opioid use, unspecified, uncomplicated; Z98.890 Other specified postprocedural states; Z72.89 Other problems related to lifestyle; Z59.0 Homelessness; Z79.2 Long term (current) use of antibiotics; Z79.899 Other long term (current) drug therapy
CPT/HCPCS: 99283

== ENCOUNTER 2020-05-12 02:21 | Emergency (ER) | payer MEDICAID ==
[~2020-05-12] VITALS: Ht 185.4 cm; Wt 100.0 kg
[~2020-05-12 02:21] MED LIST changes: +ACET-3067 PO; +DOXY100C43 PO
--- NOTE | 2020-05-12 03:11 | NUR ---
increased to WILEY level II r/t 1131
--- NOTE | 2020-05-12 03:15 | NUR ---
ATTEMPTED TO ASSESS PT. PT FALLING ASLEEP AFTER SAYING 1-2 WORDS. PT ABLE TO STATE THAT HE DRANK ALCOHOL AND HE IS A "5150".
[2020-05-12 03:29] LABS: BASOPHILS # (AUTO) 0.1 X10'3 (0-0.2); BASOPHILS % (AUTO) 0.9 % (0-1); EOSINOPHILS # (AUTO) 0.1 X10'3 (0-0.9); EOSINOPHILS % (AUTO) 1.4 % (0-6); HEMATOCRIT 38.6 % (42.0-52.0); HEMOGLOBIN 12.7 g/dl (14.0-17.9); LYMPHOCYTES # (AUTO) 1.8 X10'3 (1.1-4.8); LYMPHOCYTES % (AUTO) 27.9 % (21-51); MEAN CORPUSCULAR HEMOGLOBIN 30.3 PG (27.0-31.0); MEAN CORPUSCULAR HGB CONC 32.9 g/dL (33.0-36.5); MEAN CORPUSCULAR VOLUME 92.2 FL (78-98); MEAN PLATELET VOLUME 7.6 FL (7.4-10.4); MONOCYTES # (AUTO) 0.6 X10'3 (0-0.9); MONOCYTES % (AUTO) 9.7 % (2-12); NEUTROPHILS # (AUTO) 3.8 X10'3 (1.8-7.7); NEUTROPHILS % (AUTO) 60.1 % (42-75); PLATELET COUNT 181 X10'3 (140-440); RED BLOOD COUNT 4.19 X10'6 (4.70-6.10); RED CELL DISTRIBUTION WIDTH 16.1 % (11.5-14.5); WHITE BLOOD COUNT 6.3 X10'3 (4.5-11.0)
[2020-05-12 03:30] LABS: URINE AMPHETAMINE SCREEN POSITIVE (Neg); URINE BARBITUATE SCREEN NEGATIVE (Neg); URINE BENZODIAZEPINES SCREEN NEGATIVE (Neg); URINE CANNABINOID SCREEN POSITIVE (Neg); URINE COCAINE SCREEN NEGATIVE (Neg); URINE METHADONE SCREEN NEGATIVE (Neg); URINE OPIATE SCREEN POSITIVE (Neg); URINE PHENCYCLIDINE SCREEN NEGATIVE (Neg)
[2020-05-12 03:31] LABS: ALANINE AMINOTRANSFERASE 47 U/L (12-78); ALBUMIN 3.7 G/DL (3.4-5.0); ALBUMIN/GLOBULIN RATIO 0.8 (1.1-1.5); ALKALINE PHOSPHATASE 98 IU/L (46-116); ANION GAP 12 (8-16); ASPARTATE AMINO TRANSFERASE 27 U/L (10-37); BILIRUBIN,TOTAL 0.5 MG/DL (0.1-1.0); BLOOD UREA NITROGEN 31 MG/DL (7-18); BUN/CREATININE RATIO 27.9 (5.4-32.0); CALCIUM 9.5 MG/DL (8.5-10.1); CHLORIDE 103 MMOL/L (99-107); CREATININE 1.11 MG/DL (0.60-1.10); GLUCOSE 136 MG/DL (70-104); POTASSIUM 3.6 MMOL/L (3.5-5.1); SODIUM 142 MMOL/L (135-145); TOTAL CARBON DIOXIDE 27.5 MMOL/L (24-32); TOTAL PROTEIN 8.5 G/DL (6.4-8.2); eGFR 69 ML/MIN
[2020-05-12 03:39] LABS: ETHANOL < 0.010 GM/DL (0.0-0.010)
--- NOTE | 2020-05-12 04:04 | NUR ---
PT PACKET FAXED TO [facility]
--- NOTE | 2020-05-12 04:05 | NUR ---
The patient is well known to [facility] and has been frequenting the local ERs. He was nonverbal initially in the ER but when the MD stated that he would be discharged then all of a sudden he spoke and stated he was suicidal. He as just discharged from [facility] two days ago and he has not been taking his psychiatriac medications after discharge but has been abusing substances. Utox was positive for opiates, amphetamines, and THC.
--- NOTE | 2020-05-12 04:20 | NUR ---
Call to [facility] who report that they made no medication changes at their facility.
--- NOTE | 2020-05-12 04:47 | NUR ---
Contacted [facility] and spoke with the charge accounts audit clerk and requested and medication consult.
--- NOTE | 2020-05-12 04:49 | NUR ---
The patient appears to be sleeping at this time.
--- NOTE | 2020-05-12 06:40 | NUR ---
pt is sleeping, no s/s of distress noted.
[2020-05-12] MEDS: ESCITALOPRAM OXALATE 5 MG TABLET PO SCH (07:26)
[2020-05-12] MEDS: gabapentin 400mg capsule PO SCH ×3 (07:27→20:07)
[2020-05-12] MEDS: HYDROchlorothiazide 12.5mg capsule PO SCH (07:27)
[2020-05-12] MEDS: DOXYCYCLINE 100MG CAPSULE PO SCH ×2 (07:27→20:07)
[2020-05-12] MEDS: folic acid 1mg tablet PO SCH (07:27)
[2020-05-12] MEDS ORDERED: acetaminophen w/codeine (60MG) #4 tablet PO PRN (08:00)
--- NOTE | 2020-05-12 08:23 | NUR ---
pt moved to bed 20, pt next to him was being disruptive.
--- NOTE | 2020-05-12 10:04 | NUR ---
pt continues to sleep, no s/s of distress noted.
--- NOTE | 2020-05-12 12:31 | NUR ---
BRISSA FROM [facility] SPEAKING WITH
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
[2020-05-12] MEDS: LORazepam 1 MG tablet PO PRN (13:03)
--- NOTE | 2020-05-12 13:54 | NUR ---
pt is now sleeping, no s/s of distress noted. r/r unlabored.
--- NOTE | 2020-05-12 18:19 | NUR ---
Staff escorted pt to ER overflow. Pt is up at bedside eating his dinner
[2020-05-12] MEDS: prazosin 5mg capsule PO SCH (20:07)
[2020-05-12] MEDS: traZODone 150mg tablet PO SCH (20:09)
--- NOTE | 2020-05-12 20:16 | NUR ---
PT IS MAD BECAUSE HE IS NOT GETTING 400MG OF SEROQUEL AT NIGHT, HE TAKES THE REST OF HIS HS MEDICATIONS WITHOUT ISSUE.
--- NOTE | 2020-05-12 21:00 | NUR ---
Pt requests a snack, milk and sandwhich given
--- NOTE | 2020-05-13 00:54 | NUR ---
Pt sleping soundly, snoring at times
--- NOTE | 2020-05-13 02:08 | NUR ---
Pt up to use the restroom, returns back to bed
--- NOTE | 2020-05-13 05:33 | NUR ---
PT sleeping soundly, RR 16
[2020-05-13] MEDS: LORazepam 1 MG tablet PO PRN ×3 (05:39→19:02)
--- NOTE | 2020-05-13 07:00 | NUR ---
Pt up and asking for "grievance form" at 0645 because they have not ordered the seroquel he wants. Pt states he hasn't slept, but noc nurse was clear that he was sleeping most of the night.
[2020-05-13] MEDS: gabapentin 400mg capsule PO SCH ×3 (07:35→20:47)
[2020-05-13] MEDS: HYDROchlorothiazide 12.5mg capsule PO SCH (07:35)
[2020-05-13] MEDS: ESCITALOPRAM OXALATE 5 MG TABLET PO SCH (07:35)
[2020-05-13] MEDS: DOXYCYCLINE 100MG CAPSULE PO SCH ×2 (07:36→21:03)
[2020-05-13] MEDS: folic acid 1mg tablet PO SCH (07:36)
--- NOTE | 2020-05-13 09:00 | NUR ---
Pt was up for breakfast and since has been able to fall asleep and currently is resting peacefully without distress.
--- NOTE | 2020-05-13 10:55 | NUR ---
[facility] called and they have the pt's packet sent to [facility] who are looking at it. [facility] is not able to take the patient because of the open wound on his right lower leg.
--- NOTE | 2020-05-13 11:00 | NUR ---
DRSG change complete. No s/s of infection. Pt tolerated well.
--- NOTE | 2020-05-13 13:00 | NUR ---
Pt sitting up in bed eating lunch. Pt had c/o anxiety and received ativan with good results - decrease in anxiety.
--- NOTE | 2020-05-13 15:00 | NUR ---
Pt lying in bed, quietly without complaints.
--- NOTE | 2020-05-13 17:00 | NUR ---
Pt up x 1 to the bathroom. Pt resting quietly in the bed without complaints.
--- NOTE | 2020-05-13 19:03 | NUR ---
Patient comes to nurses station. He politely requests his PRN Ativan for anxiety. This was administered.
[2020-05-13] MEDS: lactobacillus rhamnosus 10,000 MMU CELLS/CAPSULE PO SCH (20:46)
[2020-05-13] MEDS: traZODone 150mg tablet PO SCH (20:47)
[2020-05-13] MEDS: prazosin 5mg capsule PO SCH (21:03)
--- NOTE | 2020-05-14 00:03 | NUR ---
Patient sleeping quietly, low fowlers position.
--- NOTE | 2020-05-14 01:54 | NUR ---
Patient sleeps quietly in a low fowlers pos. No s/s of any distress. Close observation for patient and staff safety.
--- NOTE | 2020-05-14 04:10 | NUR ---
Patient is sleeping quietly in a supine position. No distress.
[2020-05-14] MEDS: LORazepam 1 MG tablet PO PRN ×3 (06:15→18:49)
--- NOTE | 2020-05-14 07:00 | NUR ---
Pt awake and c/o anxiety. Pt given ativan with good results. Pt offered no other complaints.
[2020-05-14] MEDS: folic acid 1mg tablet PO SCH (07:45)
[2020-05-14] MEDS: DOXYCYCLINE 100MG CAPSULE PO SCH ×2 (07:45→20:00)
[2020-05-14] MEDS: lactobacillus rhamnosus 10,000 MMU CELLS/CAPSULE PO SCH ×2 (07:45→20:00)
[2020-05-14] MEDS: ESCITALOPRAM OXALATE 5 MG TABLET PO SCH (07:45)
[2020-05-14] MEDS: gabapentin 400mg capsule PO SCH ×3 (07:45→21:00)
[2020-05-14] MEDS: HYDROchlorothiazide 12.5mg capsule PO SCH (07:45)
--- NOTE | 2020-05-14 09:01 | NUR ---
Pt ate breakfast and now has fallen back to sleep without signs of distress.
--- NOTE | 2020-05-14 11:00 | NUR ---
Pt currently sleeping in bed without complaints or signs of distress.
--- NOTE | 2020-05-14 13:00 | NUR ---
Pt awake eating lunch currently. Pt had c/o anxiety and was given ativan with good effect.
--- NOTE | 2020-05-14 14:45 | NUR ---
Patient sleeping supine. No distress observed. Continue to monitor.
--- NOTE | 2020-05-14 16:24 | NUR ---
Patient got up and walked to the bathroom earier. Now patient sleeping on left side. No distress observed. Continue to monitor.
[2020-05-14] MEDS ORDERED: OLANZapine 5mg rapidly disint. tablet PO ONE (17:05)
--- NOTE | 2020-05-14 17:15 | NUR ---
Patient wanted something for "hearing voices". RN spoke to Dr Weeks and gave patient Zyprexa 10 mg zydius. Continue to monitor.
--- NOTE | 2020-05-14 17:58 | NUR ---
Patient ate 100% of his dinner. No distress observed. Continue to monitor.
--- NOTE | 2020-05-14 18:56 | NUR ---
Patient is sitting at bedside, complaining of anxiety. PO Ativan given. Patient is cooperative.
[2020-05-14] MEDS: prazosin 5mg capsule PO SCH (21:00)
[2020-05-14] MEDS: traZODone 150mg tablet PO SCH (21:00)
[2020-05-14] MEDS: acetaminophen w/codeine (30MG) #3 tablet PO PRN (23:00)
--- NOTE | 2020-05-14 23:06 | NUR ---
Snack of khris crackers and juice provided per patient request.
[2020-05-14] MEDS ORDERED: haloperidol lactate 5mg/ml inj IM ONE (23:45)
--- NOTE | 2020-05-14 23:46 | NUR ---
Patient was moved to main ER secondary to staffing. Patient is more agitated in this noiser enviornment. Patient becomes more labile. Per ER MD ok to give Trazidone 150 mg (a repeat dose,) and Haldol 5mg PO. A 12 lead will also be done as a routine precusor to psych med adm, per req of ER MD. Patient states he will comply with medications.
[2020-05-15] MEDS: traZODone 150mg tablet PO SCH ×3 (00:03→23:57)
--- NOTE | 2020-05-15 03:06 | NUR ---
Patient sleeping quietly, no distress noted.
--- NOTE | 2020-05-15 04:18 | NUR ---
Patient sleeps quietly, no distress.
--- NOTE | 2020-05-15 06:26 | NUR ---
Assumed care of patient
--- NOTE | 2020-05-15 07:16 | NUR ---
Moved patient to ER Overflow area
[2020-05-15] MEDS: LORazepam 1 MG tablet PO PRN (07:21)
[2020-05-15] MEDS: lactobacillus rhamnosus 10,000 MMU CELLS/CAPSULE PO SCH ×2 (07:22→21:16)
[2020-05-15] MEDS: folic acid 1mg tablet PO SCH (07:22)
[2020-05-15] MEDS: gabapentin 400mg capsule PO SCH ×3 (07:22→21:16)
[2020-05-15] MEDS: HYDROchlorothiazide 12.5mg capsule PO SCH (07:42)
[2020-05-15] MEDS: DOXYCYCLINE 100MG CAPSULE PO SCH ×2 (07:42→21:16)
[2020-05-15] MEDS: ESCITALOPRAM OXALATE 5 MG TABLET PO SCH (07:43)
--- NOTE | 2020-05-15 08:30 | NUR ---
Patient took all medications as presribed and ate all of his breakfast
--- NOTE | 2020-05-15 10:17 | NUR ---
Patient is asleep on his back in no apparent distress. Respirations are even and unlabored.
--- NOTE | 2020-05-15 12:06 | NUR ---
Patient asks for a snack and is provided with crackers.
--- NOTE | 2020-05-15 13:00 | NUR ---
Shanel ate all of his lunch and takes his neurontin
--- NOTE | 2020-05-15 14:00 | NUR ---
[facility] is currently working on safety planning client into a drug rehab facility. They are exploring having client admitted to [facility].
--- NOTE | 2020-05-15 16:05 | NUR ---
Patient continues to rest on his back in no apparent distress. Respirations are even and unlabored.
[2020-05-15] MEDS: acetaminophen w/codeine (30MG) #3 tablet PO PRN (17:22)
--- NOTE | 2020-05-15 18:06 | NUR ---
Transferred care to [facility]
--- NOTE | 2020-05-15 18:41 | NUR ---
Urine collected from patient and sent for UA.
[2020-05-15] MEDS: prazosin 5mg capsule PO SCH (21:16)
--- NOTE | 2020-05-15 21:19 | NUR ---
Pt given NOC brianne meds and a sandwich and yogurt. Pt currently sitting at edge of bed.
--- NOTE | 2020-05-16 02:30 | NUR ---
Patient care assumed. Patient is brought back from the main ER. He is sleeping quietly. Close observation provided for patient safety.
--- NOTE | 2020-05-16 04:05 | NUR ---
Patient is up to void and then back to bed. No distress.
--- NOTE | 2020-05-16 05:15 | NUR ---
Patient sleeps quietly on his right side. No distress.
[2020-05-16] MEDS: acetaminophen w/codeine (30MG) #3 tablet PO PRN ×3 (06:44→20:35)
--- NOTE | 2020-05-16 07:00 | NUR ---
Pt received asleep, but awoke c/o not sleeping and right leg pain. Tyl. #3 given per order for pain. Pt polite and cooperative.
[2020-05-16] MEDS: folic acid 1mg tablet PO SCH (08:00)
[2020-05-16] MEDS: lactobacillus rhamnosus 10,000 MMU CELLS/CAPSULE PO SCH ×2 (08:00→20:27)
[2020-05-16] MEDS: DOXYCYCLINE 100MG CAPSULE PO SCH ×2 (08:00→20:27)
[2020-05-16] MEDS: HYDROchlorothiazide 12.5mg capsule PO SCH (08:01)
[2020-05-16] MEDS: gabapentin 400mg capsule PO SCH ×3 (08:01→20:27)
[2020-05-16] MEDS: ESCITALOPRAM OXALATE 5 MG TABLET PO SCH (08:03)
--- NOTE | 2020-05-16 09:00 | NUR ---
Pt awoke for breakfast and took medications. Pt cooperative. And now has fallen back to sleep.
--- NOTE | 2020-05-16 09:22 | NUR ---
[place]: Pt given phone number to [place] to authorize Substance abuse treatment.
--- NOTE | 2020-05-16 11:00 | NUR ---
Pt at bedside being evaluated by [facility] psychologist. Pt cooperative.
--- NOTE | 2020-05-16 13:00 | NUR ---
Pt sitting up in bed, eating lunch without complaints.
--- NOTE | 2020-05-16 15:00 | NUR ---
Pt resting calmly in bed without complaints.
[2020-05-16] MEDS: hydrOXYzine 25 MG tablet PO PRN (17:18)
--- NOTE | 2020-05-16 17:19 | NUR ---
Pt resting quietly in bed, then at 1715 c/o hearing voices and anxiety. Pt given atarax for anxiety.
--- NOTE | 2020-05-16 19:29 | NUR ---
Assumed care at 1830. Patient inquires about upcoming medications, ambulates to bathroom to void, his affect is flat. Patient ate his dinner, he has been medication compliant.
[2020-05-16] MEDS: prazosin 5mg capsule PO SCH (20:27)
[2020-05-16] MEDS: traZODone 150mg tablet PO SCH (20:27)
--- NOTE | 2020-05-16 20:30 | NUR ---
Patilent up to the bathroom and then back to bed. No distress noted.
--- NOTE | 2020-05-16 21:40 | NUR ---
Patient is awake, resting quietly, in view from nurses station.
[2020-05-17] MEDS: hydrOXYzine 25 MG tablet PO PRN ×2 (01:32→12:31)
[2020-05-17] MEDS: traZODone 150mg tablet PO SCH ×3 (01:32→23:45)
--- NOTE | 2020-05-17 01:46 | NUR ---
Patient had awoken complaining of anxiety and inability to sleep. Trazadone 50 mg given PO along with Atarax PO. The patient is medication compliant tonight.
[2020-05-17] MEDS ORDERED: diphenhydrAMINE 25mg capsule PO ONE (03:45)
--- NOTE | 2020-05-17 03:45 | NUR ---
Patient is awake, states he still can't sleep will. Per ER MD, ok to give Benadryl 50 mg PO.
--- NOTE | 2020-05-17 04:26 | NUR ---
Patient sleeping now on his left side. In view from nursing station.
[2020-05-17] MEDS: acetaminophen w/codeine (30MG) #3 tablet PO PRN ×3 (06:41→21:02)
--- NOTE | 2020-05-17 06:46 | NUR ---
0600 At change of shift patient reclining in bed awake, no distress observed. Patient just recieved Tylenol #3 for his 7/10 leg pain. Patient is on right side attempting to sleep. Continue to monitor.
[2020-05-17] MEDS: folic acid 1mg tablet PO SCH (08:13)
[2020-05-17] MEDS: gabapentin 400mg capsule PO SCH ×3 (08:13→21:27)
[2020-05-17] MEDS: HYDROchlorothiazide 12.5mg capsule PO SCH (08:14)
[2020-05-17] MEDS: lactobacillus rhamnosus 10,000 MMU CELLS/CAPSULE PO SCH ×2 (08:15→21:02)
[2020-05-17] MEDS: ESCITALOPRAM OXALATE 5 MG TABLET PO SCH (08:15)
--- NOTE | 2020-05-17 08:21 | NUR ---
Patient is sitting up and eating. No distress observed. Continue to monitor.
[2020-05-17] MEDS ORDERED: OLANZapine 5mg rapidly disint. tablet PO ONE (09:45)
--- NOTE | 2020-05-17 09:48 | NUR ---
Patient is having his blood drawn and urinalysis redone. [facility] calling on patient and needs new labs. No distress observed. Continue to monitor.
[2020-05-17 10:06] LABS: BASOPHILS # (AUTO) 0.1 X10'3 (0-0.2); BASOPHILS % (AUTO) 1.4 % (0-1); EOSINOPHILS # (AUTO) 0.2 X10'3 (0-0.9); EOSINOPHILS % (AUTO) 3.7 % (0-6); HEMOGLOBIN 14.7 g/dl (14.0-17.9); LYMPHOCYTES % (AUTO) 41.4 % (21-51); MEAN CORPUSCULAR HEMOGLOBIN 30.6 PG (27.0-31.0); MEAN CORPUSCULAR HGB CONC 33.5 g/dL (33.0-36.5); MEAN CORPUSCULAR VOLUME 91.5 FL (78-98); MEAN PLATELET VOLUME 7.7 FL (7.4-10.4); MONOCYTES # (AUTO) 0.4 X10'3 (0-0.9); MONOCYTES % (AUTO) 7.5 % (2-12); NEUTROPHILS # (AUTO) 2.2 X10'3 (1.8-7.7); PLATELET COUNT 193 X10'3 (140-440); RED BLOOD COUNT 4.81 X10'6 (4.70-6.10); RED CELL DISTRIBUTION WIDTH 15.4 % (11.5-14.5); WHITE BLOOD COUNT 4.7 X10'3 (4.5-11.0)
[2020-05-17 10:20] LABS: ALANINE AMINOTRANSFERASE 74 U/L (12-78); ALBUMIN 3.6 G/DL (3.4-5.0); ALBUMIN/GLOBULIN RATIO 0.8 (1.1-1.5); ALKALINE PHOSPHATASE 91 IU/L (46-116); ANION GAP 9 (8-16); ASPARTATE AMINO TRANSFERASE 51 U/L (10-37); BILIRUBIN,TOTAL 0.3 MG/DL (0.1-1.0); BLOOD UREA NITROGEN 22 MG/DL (7-18); BUN/CREATININE RATIO 20.8 (5.4-32.0); CALCIUM 9.5 MG/DL (8.5-10.1); CHLORIDE 102 MMOL/L (99-107); CREATININE 1.06 MG/DL (0.60-1.10); GLUCOSE 68 MG/DL (70-104); POTASSIUM 4.2 MMOL/L (3.5-5.1); SODIUM 140 MMOL/L (135-145); TOTAL CARBON DIOXIDE 29.1 MMOL/L (24-32); TOTAL PROTEIN 8.4 G/DL (6.4-8.2); eGFR 72 ML/MIN
[2020-05-17 10:37] LABS: CLARITY,URINE CLEAR (Clear); COLOR,URINE YELLOW (Yellow); GLUCOSE, URINE NEGATIVE (Neg); KETONES,URINE NEGATIVE (Neg); LEUKOCYTE ESTERASE ,URINE NEGATIVE (Neg); NITRITES, URINE NEGATIVE (Neg); OCCULT BLOOD,URINE TRACE-INTACT (Neg); PROTEIN,URINE NEGATIVE (Neg); UROBILINOGEN,URINE 0.2 E.U/dL (0.2-1.0)
[2020-05-17 10:39] LABS: UA COLLECTION TYPE NON-SPECIFIED
[2020-05-17 11:08] LABS: BACTERIA,URINE FEW /HPF (Neg); RBC,URINE 0-2 /HPF (0-2); SQUAMOUS EPITHELIAL CELL,UR FEW /LPF (FEW); WBC,URINE 0-4 /HPF (0-4)
--- NOTE | 2020-05-17 11:11 | NUR ---
Patient resting in bed. No distress observed. Continue to monitor.
--- NOTE | 2020-05-17 13:15 | NUR ---
Patient eating lunch. No distress observed. Continue to monitor.
--- NOTE | 2020-05-17 14:54 | NUR ---
Per accepting facility, requesting to have a TB test or a chest xray to rule out TB. Spoke with Himanshu BAZAN regarding this and he gave a verbal order for a single view chest xray once now.
--- NOTE | 2020-05-17 16:55 | NUR ---
Patient eating snack. No distress observed. Continue to monitor.
--- NOTE | 2020-05-17 17:43 | NUR ---
Advised patient of his acceptance to the [facility]. Tech faxed information to the [facility]. RN believes he will be going tomorrow. But more information tomorrow. Patient is happy about the next move. Continue to monitor.
[2020-05-17 17:55] VITALS: BP 132/88
--- NOTE | 2020-05-17 18:50 | NUR ---
DURING 1:1 BEDSIDE ASSESSMENT, PT DENIES ANY SI/SH/HI AT THIS TIME. PT STATES HE IS HAVING COMMAND AUDITORY HALLUCINATIONS TO HARM HIMSELF BUT DOES NOT PLAN TO ACT ON THESE VOICES OR HARM HIMSELF WHILE HE IS HERE. HE IS CALM AND COOPERATIVE WITH STAFF AND STATES HE IS HAVING SOME PAIN IN HIS FOOT "FROM MY SURGICAL SITE" BUT HAS NO OTHER COMPLAINTS OR CONCERNS/REQUESTS AT THIS TIME.
--- NOTE | 2020-05-17 19:47 | NUR ---
pt moved to main er bed 09 without problem.
--- NOTE | 2020-05-17 20:30 | NUR ---
PATIENT ASKING FOR HIS PAIN MEDICATION. PATIENT HAS DRESSING TO RIGHT LOWER LEG. PATIENT REPORTS IT IS FROM CELLULITIS.
--- NOTE | 2020-05-17 21:19 | NUR ---
joshua caldwell left the er to obtain scheduled medications
--- NOTE | 2020-05-17 21:23 | NUR ---
REPORT TO [facility]. SHE WILL CHANGE DRESSING TO RIGHT LOWER LEG AND TAKE PHOTOS OF IT
[2020-05-17] MEDS: prazosin 5mg capsule PO SCH (21:33)
--- NOTE | 2020-05-17 21:41 | NUR ---
Pt given night medications. He seems to be in good spirits and settled into bed. Noted bandage on right lower leg that pt states is from cellulitis that was cared for last week in overflow.
--- NOTE | 2020-05-17 23:38 | NUR ---
PT LAYING IN BED SUPINE ON BACK APPEARS TO BE SLEEPING. RESPIRATIONS EVEN AND UNLABORED. NO ACUTE S/S OF DISTRESS AT THIS TIME.
--- NOTE | 2020-05-18 01:00 | NUR ---
PT APPEARS TO BE SLEEPING. NO SIGN OF DISTRESS
--- NOTE | 2020-05-18 02:00 | NUR ---
PT APPEARS TO BE SLEEPING. RR EVEN AND UNLABORED. NO SIGN OF DISTRESS
--- NOTE | 2020-05-18 03:01 | NUR ---
AMBULATED TO BATHROOM. BACK IN BED
--- NOTE | 2020-05-18 05:40 | NUR ---
PT APPEARS TO BE SLEEPING ON RIGHT SIDE, RR EVEN AND UNLABORED
--- NOTE | 2020-05-18 06:25 | NUR ---
Assumed care of patient. Pt ambulated independently from main ED to [facility]. Pt calm and coopertive. Pt's right leg dressing was assessed and changed. Dressing CD&I.
[2020-05-18] MEDS: HYDROchlorothiazide 12.5mg capsule PO SCH (08:28)
[2020-05-18] MEDS: folic acid 1mg tablet PO SCH (08:28)
[2020-05-18] MEDS: lactobacillus rhamnosus 10,000 MMU CELLS/CAPSULE PO SCH (08:28)
[2020-05-18] MEDS: gabapentin 400mg capsule PO SCH ×2 (08:28→13:16)
[2020-05-18] MEDS: ESCITALOPRAM OXALATE 5 MG TABLET PO SCH (08:29)
--- NOTE | 2020-05-18 08:30 | NUR ---
Patient sitting at bedside eating breakfast, no distress noted. No somatic complaints noted.
--- NOTE | 2020-05-18 09:47 | NUR ---
sent primary nurse on a break, the patient was in the restroom when I took over. The patient ambulated in stable condition back to his bed. The patient's respirations appeared normal and he was not in any distress at this time.
--- NOTE | 2020-05-18 10:33 | NUR ---
Patient awake sitting up in bed, no distress noted. Pt's eyes are closed, but responds to name. Respirations even and unlabored.
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
== END 2020-05-18 13:46 ==
LOC: ER 02:22
DX: R45.851 Suicidal ideations (principal); Z20.822 Contact with and (suspected) exposure to COVID-19; I10 Essential (primary) hypertension; F12.90 Cannabis use, unspecified, uncomplicated; F15.90 Other stimulant use, unspecified, uncomplicated; F11.90 Opioid use, unspecified, uncomplicated; Z98.890 Other specified postprocedural states; Z59.0 Homelessness; Z79.899 Other long term (current) drug therapy
CPT/HCPCS: 36415; 80053; 80305; 80320; 81001; 85025; 87426; 96372; 99285

== ENCOUNTER 2020-05-23 09:18 | Emergency (ER) | payer MEDICAID ==
[~2020-05-23] VITALS: Ht 182.9 cm; Wt 90.0 kg
[~2020-05-23 09:18] MED LIST changes: -SULF1TAB45 PO
[2020-05-23 09:45] VITALS: BP 156/86
[2020-05-23] MEDS ORDERED: cephalexin 500mg capsule PO ONE (10:25)
[2020-05-23] MEDS ORDERED: CEPH-585 PO (10:30)
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
--- NOTE | 2020-05-23 11:50 | NUR ---
CR aware pt will be returning to their facility via taxi to talk with staff, contacted cab ETA is 1 1/2 hours. Pt is aware and will be waiting by ER
== END 2020-05-23 12:00 | disposition home or self-care (01) ==
LOC: ER 09:18
DX: S81.801A Unspecified open wound, right lower leg, initial encounter (principal); L08.9 Local infection of the skin and subcutaneous tissue, unspecified; I10 Essential (primary) hypertension; M19.90 Unspecified osteoarthritis, unspecified site; F12.90 Cannabis use, unspecified, uncomplicated; F15.90 Other stimulant use, unspecified, uncomplicated; Z72.89 Other problems related to lifestyle; Z59.0 Homelessness; Z79.2 Long term (current) use of antibiotics; Z79.899 Other long term (current) drug therapy; Z96.643 Presence of artificial hip joint, bilateral; Y83.8 Other surgical procedures as the cause of abnormal reaction of the patient, or of later complication, without mention of misadventure at the time of the procedure; Y81.2 Prosthetic and other implants, materials and accessory general- and plastic-surgery devices associated with adverse incidents; Y92.89 Other specified places as the place of occurrence of the external cause; Y93.89 Activity, other specified; Y99.8 Other external cause status
CPT/HCPCS: 99283

== ENCOUNTER 2020-05-23 15:21 | Emergency (ER) | payer MEDICAID ==
[~2020-05-23] VITALS: Ht 177.8 cm; Wt 84.1 kg
[~2020-05-23 15:21] MED LIST changes: +CEPH-585 PO
[2020-05-23 15:33] VITALS: BP 156/88
== END 2020-05-23 15:39 | disposition home or self-care (01) ==
LOC: ER 15:23
DX: F10.129 Alcohol abuse with intoxication, unspecified (principal); F32.9 Major depressive disorder, single episode, unspecified; I10 Essential (primary) hypertension; M19.90 Unspecified osteoarthritis, unspecified site; F12.90 Cannabis use, unspecified, uncomplicated; F15.90 Other stimulant use, unspecified, uncomplicated; Z59.0 Homelessness; Z79.2 Long term (current) use of antibiotics; Z79.899 Other long term (current) drug therapy; Z76.5 Malingerer [conscious simulation]; Y90.9 Presence of alcohol in blood, level not specified
CPT/HCPCS: 99283

== ENCOUNTER 2020-05-25 00:22 | Emergency (ER) | payer MEDICAID ==
[~2020-05-25] VITALS: Ht 182.9 cm; Wt 90.9 kg
[2020-05-25 00:23] VITALS: BP 147/87
[2020-05-25] MEDS ORDERED: DOXYCYCLINE 100MG CAPSULE PO STA (01:25)
[2020-05-25] MEDS ORDERED: ondansetron 4mg rapidly disintigrating tab PO ONE (01:25)
[2020-05-25] MEDS ORDERED: DOXY100C76 PO (01:29)
[2020-05-25] MEDS ORDERED: TRAZ-256 PO (23:01)
== END 2020-05-25 01:38 | disposition home or self-care (01) ==
LOC: ER 00:22
DX: L03.115 Cellulitis of right lower limb (principal); I10 Essential (primary) hypertension; F12.90 Cannabis use, unspecified, uncomplicated; F15.90 Other stimulant use, unspecified, uncomplicated; F11.90 Opioid use, unspecified, uncomplicated; Z72.89 Other problems related to lifestyle; Z98.890 Other specified postprocedural states; Z59.0 Homelessness; Z79.2 Long term (current) use of antibiotics; Z79.899 Other long term (current) drug therapy
CPT/HCPCS: 99283

== ENCOUNTER 2020-05-25 06:35 | Emergency (ER) | payer MEDICAID ==
[~2020-05-25] VITALS: Ht 185.4 cm; Wt 90.0 kg
[~2020-05-25 06:35] MED LIST changes: +DOXY100C76 PO
[2020-05-25 06:59] VITALS: BP 120/74
[2020-05-25] MEDS ORDERED: TRAZ-256 PO (23:01)
== END 2020-05-25 07:13 | disposition home or self-care (01) ==
LOC: ER 06:35
DX: Z76.5 Malingerer [conscious simulation] (principal); I10 Essential (primary) hypertension; F12.90 Cannabis use, unspecified, uncomplicated; F15.90 Other stimulant use, unspecified, uncomplicated; F11.90 Opioid use, unspecified, uncomplicated; F17.200 Nicotine dependence, unspecified, uncomplicated; Z72.89 Other problems related to lifestyle; Z59.0 Homelessness; Z98.890 Other specified postprocedural states; Z79.2 Long term (current) use of antibiotics; Z79.899 Other long term (current) drug therapy
CPT/HCPCS: 99281

== ENCOUNTER 2020-05-25 21:53 | Emergency (ER) | payer MEDICAID ==
[~2020-05-25] VITALS: Ht 182.9 cm; Wt 90.9 kg
[2020-05-25 21:59] VITALS: BP 109/74
[2020-05-25] MEDS ORDERED: traZODone 50mg tablet PO ONE (23:00)
[2020-05-25] MEDS ORDERED: traZODone 50mg tablet PO SCH (23:00)
[2020-05-25] MEDS ORDERED: TRAZ-256 PO (23:01)
== END 2020-05-25 23:19 | disposition home or self-care (01) ==
LOC: ER 21:54
DX: Z02.89 Encounter for other administrative examinations (principal); R50.9 Fever, unspecified; I10 Essential (primary) hypertension; F12.90 Cannabis use, unspecified, uncomplicated; F15.90 Other stimulant use, unspecified, uncomplicated; F11.90 Opioid use, unspecified, uncomplicated; Z76.5 Malingerer [conscious simulation]; Z98.890 Other specified postprocedural states; Z72.89 Other problems related to lifestyle; Z59.0 Homelessness; Z79.2 Long term (current) use of antibiotics; Z79.899 Other long term (current) drug therapy
CPT/HCPCS: 99284